=== PATIENT | female | born 1970 | race Asian ===

== ENCOUNTER 2021-11-19 09:37 | Outpatient (CLI) | payer OTHER ==
[~2021-11-19 09:37] MED LIST: BENICAR HCT1 TAB PO; ELIMITE5 % EX; KOMBIGLYZE1 TA1 OR; ONGLYZA5 MG OR; ROSU10TA PO; TRAJENTA PO
== END 2021-11-19 18:57 | disposition home or self-care (01) ==
LOC: RAD 09:37
PROVIDERS: ATTEND Internal Medicine
DX: L60.0 Ingrowing nail (principal)

== ENCOUNTER 2021-11-29 13:12 | Emergency (ER) | payer OTHER ==
[~2021-11-29] VITALS: Ht 157.5 cm; Wt 71.7 kg
[2021-11-29 13:20] VITALS: TEMP 98.1
[2021-11-29 15:15] VITALS: BP 166/90
== END 2021-11-29 15:15 | disposition home or self-care (01) ==
LOC: ED 13:12
DX: S20.211A Contusion of right front wall of thorax, initial encounter (principal); V43.62XA Car passenger injured in collision with other type car in traffic accident, initial encounter; Y92.89 Other specified places as the place of occurrence of the external cause
CPT/HCPCS: 81002; 96372; 99283; J1885